=== PATIENT | male | born 1960 | race Caucasian/White ===

== ENCOUNTER 2025-03-08 14:09 | Inpatient (IN) | payer BC, MEDICARE ==
[~2025-03-08] VITALS: Ht 188 cm; Wt 113.9 kg
[~2025-03-08 14:09] MED LIST: AMLO1TAB39 PO; ASPI-845 PO; LEVO25TA2 PO
--- NOTE | 2025-03-08 14:13 | ELECTROCARDIOGRAPH REPORT ---
[facility] Test Date: 2025-03-08 Test Time: 14:11:07 Pat Name: ANTONIA RAMIREZ Department: EMERGENCY ROOM Room: [place] [address] Gender: M Assistant Spa Manager: PM : 1960 Requested By: ANJALI WALTER Order Number: [id number] Reading MD: Dr. Franco Johnson Measurements Intervals [place] Rate: 37 P: 36 AK: 166 QRS: 27 QRSD: 154 T: 10 QT: 522 QTc: 410 Interpretive Statements Predominant 2:1 AV block Right bundle branch block Inferior infarct, old Electronically Signed On 03-10-2025 6:35:[address] Franco Johnson Please click the below link to view image of tracing.
[2025-03-08 14:29] LABS: BASOPHILS % (AUTO) 0.5 % (0-1); EOSINOPHILS # (AUTO) 0.1 X10'3 (0-0.9); EOSINOPHILS % (AUTO) 1.2 % (0-6); HEMATOCRIT 43.3 % (42.0-52.0); HEMOGLOBIN 14.3 g/dl (14.0-17.9); LYMPHOCYTES # (AUTO) 1.6 X10'3 (1.1-4.8); LYMPHOCYTES % (AUTO) 20.6 % (21-51); MEAN CORPUSCULAR HEMOGLOBIN 28.8 PG (27.0-31.0); MEAN CORPUSCULAR HGB CONC 33.1 g/dL (33.0-36.5); MEAN CORPUSCULAR VOLUME 87.1 FL (78-98); MEAN PLATELET VOLUME 8.3 FL (7.4-10.4); MONOCYTES # (AUTO) 0.5 X10'3 (0-0.9); MONOCYTES % (AUTO) 6.7 % (2-12); NEUTROPHILS # (AUTO) 5.7 X10'3 (1.8-7.7); PLATELET COUNT 221 X10'3 (140-440); RED BLOOD COUNT 4.97 X10'6 (4.70-6.10); RED CELL DISTRIBUTION WIDTH 14.6 % (11.5-14.5)
[2025-03-08] MEDS ORDERED: AMLO5TAB16 PO (14:32)
[2025-03-08] MEDS ORDERED: LOSA50TA64 PO (14:32)
--- NOTE | 2025-03-08 14:57 | RADIOLOGY REPORT ---
CHEST RADIOGRAPH Indication: CP Technique: Single frontal view of the chest was obtained Comparison: None FINDINGS: The cardiac silhouette is unremarkable. The lungs demonstrate no pulmonary airspace consolidation. Th e pulmonary vasculature is unremarkable. There is no pleural effusion.. There is no pneumothorax. Ce rvical fusion hardware. Postsurgical changes right axilla. IMPRESSION: 1. No pulmonary airspace consolidation.
[2025-03-08 15:17] LABS: ALBUMIN 3.7 G/DL (3.4-5.0); ANION GAP 7 (8-16); BLOOD UREA NITROGEN 16 MG/DL (7-18); CALCIUM 8.7 MG/DL (8.5-10.1); CHLORIDE 109 MMOL/L (99-107); CREATININE 1.14 MG/DL (0.60-1.10); GLUCOSE 98 MG/DL (70-104); POTASSIUM 3.5 MMOL/L (3.5-5.1); PRO BRAIN NATRIURETIC PEPTIDE 143 PG/ML (0-125); SODIUM 143 MMOL/L (135-145); THYROID STIMULATING HORMONE 1.75 ulU/ml (0.34-4.50); TOTAL CARBON DIOXIDE 26.9 MMOL/L (24-32); eCRCL 78 ML/MIN; eGFR 65 ML/MIN
--- NOTE | 2025-03-08 16:11 | Physician Documentation ---
History of Present Illness ~ Chief Complaint: Bradycardia Stated Complaint: ABNORMAL EKG Time Seen by MD: 14:13 Primary Medical Doctor: TITO HPI Patient was sent to the hospitalist said the request of his primary care provider. He has had generalized weakness work he gets short of breath at times when he normally would not. Denies chest pain he is not lightheaded he has not had a syncopal episode. In the office today he had an EKG which showed a heart block and was sent to the hospital for evaluation. He takes amlodipine. Medication Reconciliation Allergies: Coded Allergies: No Known Allergies (Unverified , 08/09/16) Scheduled Amlodipine Besylate (Amlodipine Besylate), 1 TAB PO DAILY, (Reported) Losartan Potassium (Losartan Potassium), 1 TAB PO DAILY, (Reported) Discontinued Medications Amlodipine Bes/Olmesartan Med (Alverto 5-40 Mg Tablet), 1 TAB PO DAILY, (Reported) Discontinued Reason: completed med therapy Aspirin* (Aspirin EC*), 1 TAB PO BIDBD Discontinued Reason: completed med therapy levothyroxine sodium* (Synthroid*), 50 MCG PO DAILY, (Reported) Discontinued Reason: completed med therapy Physical Exam Vital Signs: Temperature: 98.2, Source: Temporal, Heart Rate: 41, Respiratory Rate: 12, BP: 139/75, Pulse Oximetry: 97, Weight: 113.900 Oxygen Flow Rate: 0 Physical Exam General: Awake and Alert, no acute distress. HEENT: Conjunctiva pink, Sclera clear, Mucus Membranes moist. Neck: Supple without masses and tenderness. Resp: Unlabored. Lungs clear to auscultation bilaterally. Heart: Bradycardic no obvious murmurs Abdomen: Soft and non tender no organomegaly Extremities: No cyanosis,clubbing or edema. Skin: Warm and Dry. Neuro: GCS 15; no focal deficits Progress Results/Orders Results/Orders Orders - ANJALI WALTER MD Chest,Single View (03/08/25 14:12) Monitor (03/08/25 14:12) Saline Lock (03/08/25 14:12) Oxygen (03/08/25 14:12) Hs Troponin I W Calculations (03/08/25 16:12) Hs Troponin I W Calculations (03/08/25 17:12) Completed Orders - ANJALI WALTER MD Chest,Single View (03/08/25 14:12) Cbc/Diff (03/08/25 14:12) BMP (03/08/25 14:12) PBNP (03/08/25 14:12) Electrocardiogram (03/08/25 14:12) Hs Troponin I W Calculations (03/08/25 14:12) TSH (03/08/25 14:18) Vital Signs 03/08/25 03/08/25 03/08/25 03/08/25 14:12 14:24 14:24 14:59 Temp 98.2 98.2 Pulse 37 39 41 Resp 15 14 12 B/P (MAP) 144/65 (91) 139/75 (96) Pulse Ox 97 96 97 O2 Flow Rate 0 0 Laboratory Tests Test 03/08/25 14:18 White Blood Count 8.0 Red Blood Count 4.97 Hemoglobin 14.3 Hematocrit 43.3 Mean Corpuscular Volume 87.1 Mean Corpuscular Hemoglobin 28.8 Mean Corpuscular Hemoglobin Concent 33.1 Red Cell Distribution Width 14.6 H Platelet Count 221 Mean Platelet Volume 8.3 Neutrophils (%) (Auto) 71.0 Lymphocytes (%) (Auto) 20.6 L Monocytes (%) (Auto) 6.7 Eosinophils (%) (Auto) 1.2 Basophils (%) (Auto) 0.5 Neutrophils # (Auto) 5.7 Lymphocytes # (Auto) 1.6 Monocytes # (Auto) 0.5 Eosinophils # (Auto) 0.1 Basophils # (Auto) 0.0 CBC Comment Sodium Level 143 Potassium Level 3.5 Chloride Level 109 H Carbon Dioxide Level 26.9 Anion Gap 7 L Blood Urea Nitrogen 16 Creatinine 1.14 H Estimated GFR/1.73 m2 65 BUN/Creatinine Ratio 14.0 Glucose Level 98 Calcium Level 8.7 Troponin I High Sensitivity 14 Pro-B-Type Natriuretic Peptide 143 H Albumin 3.7 Thyroid Stimulating Hormone (TSH) 1.75 Chemistry Comments Medical Decision Making Findings EKGs interpreted by me shows a heart block were every other P wave is nonconducted rate is 37 beats per minute axis is normal incomplete right bundle branch block no ST elevation or depression Patient was sent to the hospital by his primary care provider after they did an EKG which showed a heart block. He does take amlodipine. His was placed on a monitor and EKG was done. He appears to be in a Mobitz type 2 second-degree heart block. He is hemodynamically stable normal blood pressure and he is asymptomatic. Dr. Vivas was consulted who is going to come see the patient. Departure Disposition: 09 ADMITTED INPATIENT Impression: Primary Impression: Mobitz type 2 second degree atrioventricular block Condition: Guarded Referrals: NO PRIMARY CARE PROVIDER (PCP) Education Educated: Patient, Family Educated regarding: diagnosis, treatment, prognosis Critical Care Note Critical Care Note This patient had a high probability of sudden, clinically significant deterioration, which required the highest level of physician preparedness to intervene urgently. The patient required and I delivered critical care from time of arrival until disposition. Critical care time was separate from procedural such as intubation or central line placement or cardioversion. Critical care included initial assessment of the seriously ill patient, initiation of diagnostic studies and treatment, management of life-threatening and/or end organ supporting interventions that required frequent physician assessment, and phone consultation with other providers as outlined in the progress notes. Spent with family or surrogates is included only if the patient was not capable of providing the necessary information or participating in medical decision-making. Total critical care time: 60 minutes Signature Scribe Signature: no scribe Attestation: no ANJALI Gamboa MD Mar 08, 2025 16:11
[2025-03-08] MEDS ORDERED: ondansetron/PF 4mg/2ml inj IV PRN (16:30)
[2025-03-08] MEDS ORDERED: magnesium sulf-water 4G/100mL 100 ML IV PRN (16:30)
[2025-03-08] MEDS ORDERED: potassium Cl 20 mEq SR tablet PO PRN ×2 (16:30)
[2025-03-08] MEDS ORDERED: potassium Cl 40MEQ/1/2NS 520ml 520 ML IV PRN (16:30)
[2025-03-08] MEDS ORDERED: magnesium sulf-water 2g/50mL 50 ML IV PRN (16:30)
[2025-03-08] MEDS ORDERED: acetaminophen 325mg tablet PO PRN ×2 (16:30)
[2025-03-08] MEDS ORDERED: mag hydrox/Alum hydrox/simeth 30ml oral suspension PO PRN (16:30)
[2025-03-08] MEDS ORDERED: HYDROcodone/acetaminophen 5mg/325mg tablet PO PRN (16:30)
[2025-03-08] MEDS ORDERED: magnesium Cl slow-release 64mg tablet PO PRN (16:30)
[2025-03-08 16:54] LABS: INR 1.1 INR; PROTHROMBIN TIME 10.8 SECONDS (9.0-12.0)
[2025-03-08 17:07] LABS: HEMOGLOBIN A1C 5.3 % (4.5-6.2)
--- NOTE | 2025-03-08 17:35 | HISTORY AND PHYSICAL-Residence ---
History & Physical Providers to CC Resident Creating Document: ESTHER NELSON RES ~ History of Present Illness Primary Medical Doctor: TITO Reason for Admit\Complaint: heart block, bradycardia History of Present Illness 64-year-old male with history of hypertension, right bundle-branch block diagnosed a year ago presented to the ED from [facility] after he was found to be bradycardic and was noted to have a heart block on EKG. On exam his pulse was in the low 40s, EKG showed second-degree heart block and hence recommended that he goes to the ER. He states he has been feeling lethargic and tired for the past two three months. Denies chest pain, dizziness, headaches, shortness of breath, nausea vomiting fever or chills. No aggravating or relieving factors. No other associated symptoms. He follows up with his synchronizer Dr. Jenkins, last seen him in February 2024. Denies smoking or drug abuse. Drinks occasional alcohol. 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 Independent ADLs. Discussed advanced care directives and wishes to be a full code. Allergies: Coded Allergies: No Known Allergies (Unverified , 08/09/16) Home Medications Home Medications Active Reported Losartan Potassium 50 Mg Tablet 1 Tab PO DAILY Amlodipine Besylate 5 Mg Tablet 1 Tab PO DAILY Past Medical History Past Medical History Hypertension Right bundle-branch block Past Surgical History Surgical History Comment Orthopedic surgeries bilateral hip, knee replacement Cervical fusion Resection of melanoma of the shoulder ROS ROS Reviewed in full. All negative except for pertinent positive HPI. Exam Vitals: Vital Signs Date Time Temp Pulse Resp B/P (MAP) Pulse Ox O2 Delivery O2 Flow Rate FiO2 03/08/25 16:25 98.2 36 15 179/100 (126) 97 0 General: General: Awake and Alert, concerned but not in any acute distress. HEENT: Conjunctiva pink, Sclera clear, Mucus Membranes moist. Neck: Supple without masses and tenderness. Resp: Unlabored. Equal breath sounds bilaterally. Heart: Bradycardic, sinus rhythm, normal S1 and S2, no rub, murmur or gallop. Abdomen: Soft and non tender no organomegaly. Normal bowel sounds x4 quadrant normoactive. No guarding or rigidity. Extremities: Normal ROM, no swelling, nontender. No cyanosis,clubbing or edema. SALT LIFTER: No gross motor or sensory abnormalities. Skin: Warm and Dry. Diagnostic Data Last Recorded Lab Results: 03/08/25 1418 03/08/25 1418 Diagnostic Data: Laboratory Tests Test 03/08/25 14:18 Prothrombin Time 10.8 SECONDS (9.0-12.0) INR International Normalized Ratio 1.1 INR Coagulation Comments Advance Care Planning Advanced Care plannin - 30 Minutes Additional Plan 64-year-old male with history of hypertension, right bundle-branch block diagnosed a year ago presented to the ED from [facility] after he was found to be bradycardic and was noted to have a heart block on EKG. Mobitz type 2 Second-degree heart block Symptomatic bradycardia secondary to above Vitals blood pressure 179/100, heart rate 34 EKG: Second-degree Mobitz type 2 heart block, right bundle-branch block He is hemodynamically stable at this time, he has a pacer pads on him Troponins negative, electrolytes and TSH within normal limits Not on any medication that could be precipitating the above event Continue telemetry monitoring, patient currently hemodynamically stable, will need permanent pacemaker, if he gets unstable he might require atropine and temporary transvenous pacing Dr. Vivas has been consulted by ED, appreciate recommendations JOSETTE likely secondary to vasomotor nephropathy Hypertension Awaiting med rec Code Status: Full code DVT prophylaxis: Heparin Analgesia/sedation: None Line/tube: PIV GI prophylaxis: None Nutrition: NPO in view of possible pacemaker placement today Prognosis: Guarded Disposition: Continue medical management. Esther Nelson MD. IM Resident PGY-2 Date of Service: Mar 08, 2025 Billing Provider: ELIAS GIBBS MD Common Visit Codes: [id number] INP/OBS CARE (HIGH) Secondary Visit Codes: [id number] CARE PLAN 30 MINUTES ESTHER NELSON, LINWOOD Mar 08, 2025 17:35 ELIAS GIBBS MD Mar 09, 2025 22:07
[2025-03-08 17:38] LABS: BILIRUBIN,URINE NEGATIVE (Neg); CLARITY,URINE CLEAR (Clear); COLOR,URINE YELLOW (Yellow); GLUCOSE, URINE NEGATIVE (Neg); KETONES,URINE NEGATIVE (Neg); LEUKOCYTE ESTERASE ,URINE NEGATIVE (Neg); NITRITES, URINE NEGATIVE (Neg); OCCULT BLOOD,URINE NEGATIVE (Neg); PROTEIN,URINE NEGATIVE (Neg); UROBILINOGEN,URINE 0.2 E.U/dL (0.2-1.0)
[2025-03-08 17:47] LABS: UA COLLECTION TYPE VOIDED
[2025-03-08] MEDS: normal saline 1000ml 1,000 ML IV SCH (19:02)
[2025-03-08] MEDS: K and/or MAG REPLACEMENT MC SCH (19:03)
[2025-03-08 20:30] VITALS: BP 206/86; PULSE 32; RESP 15; TEMP 98.5; O2SAT 97
[2025-03-08] MEDS: heparin, porcine 5000 units/ml vial SQ SCH (20:42)
[2025-03-08 21:00] VITALS: RESP 14; O2SAT 97
[2025-03-08 22:00] VITALS: BP 172/73; PULSE 33; RESP 13; TEMP 98.3; O2SAT 97
[2025-03-09] VITALS (16 sets, daily range): BP systolic 129–204; BP diastolic 74–92; PULSE 34–73; RESP 12–19; TEMP 97.3–98.6; O2SAT 94–98
[2025-03-09 06:11] LABS: BASOPHILS % (AUTO) 0.5 % (0-1); EOSINOPHILS # (AUTO) 0.1 X10'3 (0-0.9); EOSINOPHILS % (AUTO) 2.5 % (0-6); HEMATOCRIT 40.7 % (42.0-52.0); HEMOGLOBIN 13.5 g/dl (14.0-17.9); LYMPHOCYTES # (AUTO) 1.6 X10'3 (1.1-4.8); LYMPHOCYTES % (AUTO) 30.7 % (21-51); MEAN CORPUSCULAR HEMOGLOBIN 28.8 PG (27.0-31.0); MEAN CORPUSCULAR HGB CONC 33.1 g/dL (33.0-36.5); MEAN CORPUSCULAR VOLUME 86.9 FL (78-98); MEAN PLATELET VOLUME 7.8 FL (7.4-10.4); MONOCYTES # (AUTO) 0.4 X10'3 (0-0.9); MONOCYTES % (AUTO) 8.1 % (2-12); NEUTROPHILS # (AUTO) 3.1 X10'3 (1.8-7.7); NEUTROPHILS % (AUTO) 58.2 % (42-75); PLATELET COUNT 171 X10'3 (140-440); RED BLOOD COUNT 4.68 X10'6 (4.70-6.10); RED CELL DISTRIBUTION WIDTH 14.1 % (11.5-14.5); WHITE BLOOD COUNT 5.3 X10'3 (4.5-11.0)
[2025-03-09 06:23] LABS: ALANINE AMINOTRANSFERASE 35 U/L (12-78); ALBUMIN/GLOBULIN RATIO 1.1 (1.1-1.5); ALKALINE PHOSPHATASE 59 IU/L (46-116); ANION GAP 9 (8-16); ASPARTATE AMINO TRANSFERASE 20 U/L (10-37); BILIRUBIN,TOTAL 0.9 MG/DL (0.1-1.0); BLOOD UREA NITROGEN 10 MG/DL (7-18); BUN/CREATININE RATIO 11.8 (10.0-20.0); CALCIUM 8.4 MG/DL (8.5-10.1); CHLORIDE 109 MMOL/L (99-107); CREATININE 0.85 MG/DL (0.60-1.10); GLUCOSE 88 MG/DL (70-104); PHOSPHORUS 3.4 MG/DL (2.3-4.5); POTASSIUM 3.7 MMOL/L (3.5-5.1); SODIUM 147 MMOL/L (135-145); TOTAL CARBON DIOXIDE 28.9 MMOL/L (24-32); TOTAL PROTEIN 5.7 G/DL (6.4-8.2); eCRCL 105 ML/MIN; eGFR > 90 ML/MIN
[2025-03-09] MEDS: hydrALAZINE 20mg/ml inj. IV PRN (07:50)
[2025-03-09] MEDS ORDERED: ceFAZolin 1000mg inj ONE (15:26)
[2025-03-09] MEDS ORDERED: LIDOcaine 1% W/epiNEPHrine 1:100,000 20ml vial ONE (15:26)
[2025-03-09] MEDS ORDERED: fentaNYL/PF 50MCG/1 ML 2ML syringe ONE (15:26)
[2025-03-09] MEDS ORDERED: midazolam 1 mg/ML 2ml injection ONE ×2 (15:26→17:47)
--- NOTE | 2025-03-09 15:58 | CONSULTATION REPORT ---
History of Present Illness Providers to CC CC: MARQUIS VIVAS MD ~ Reason for Admit\Admit Dx: Cardiology Consultation Refering MD: Hospitalist/Residency Service History of Present Illness 64 year-old male with PMH HTN and RBBB presented to the ED from [facility] after he was found to be bradycardic and was noted to have a heart block on EKG. On exam his pulse was in the low 40s, EKG showed second-degree type 2 heart block with 2:1 conduction. It was recommended that he goes to the ER. He states he has been feeling lethargic, fatigued and tired for the past two to three months. Denies chest pain, dizziness, headaches, shortness of breath, nausea vomiting fever or chills. No aggravating or relieving factors. No other associated symptoms. His [place] Layer is Dr. Jenkins who has signed out to the on-call [place] Layer Dr. Emely Vivas. Allergies: Coded Allergies: No Known Allergies (Unverified , 08/09/16) Home Medications Home Medications Active Reported Losartan Potassium 50 Mg Tablet 1 Tab PO DAILY Amlodipine Besylate 5 Mg Tablet 1 Tab PO DAILY (Discontinued). Past Medical History Medical History Comment Hypertension Right bundle branch block Past Surgical History Surgical History Comment No prior cardiovascular procedures. Past Family History Family History Comment Non-contributory Past Social History Social History Comment Denies illicit drug use. Non-smoker. Physical Exam Last Vital Signs Recorded: Temperature: 97.3, Source: Temporal, Heart Rate: 37, Respiratory Rate: 13, BP: 204/82, Pulse Oximetry: 98, Weight: 113.900 General Appearance: alert, no apparent distress EENT: PERRL/EOMI, normal ENT inspection Neck: normal inspection Respiratory: lungs clear, no respiratory distress Chest: no accessory muscle use Cardiovascular: normal peripheral pulses, bradycardia Peripheral Pulses: 2+ radial (R), 2+ radial (L) Gastrointestinal: normal palpation, non-tender Extremities: normal range of motion Neurologic: oriented x4, memory intact Psychiatric: normal mood/affect Skin: normal color Review of Systems All Other Systems at this time: Reviewed and Negative ROS 10 point ROS completed, all negative except those mentioned in HPI Results EKG EKG Second degree type 2 heart block with 2:1 conduction. Ventricular rate 37 Echocardiogram Echocardiogram Report pending. Initial interpretation: No valvular disease. LVEF 60-65% Diagram Lab Result Diagram: 03/09/25 0548 03/09/2548 Assessment/Plan Additional Plan 64-year-old male with history of HTN, RBBB. Recently experiencing increased fatigue, lethargy. Presents to ER from [facility] with 2nd degree Mobitz 2 AV block with 2:1 conduction. Pt. reports his HR monitoring watch has been warning him for several weeks of low HR. Second Degree Heart Block Type 2. Ventricular rate 37bpm. Pt. with symptoms increasing in severity. -Pt. will require permanent pacemaker implantation. -The nature of the procedure, including risks, benefits, and alternatives were discussed with patient and . All questions addressed and answered. The patient wishes to proceed. Supervising MD Supervising Physician: FABRICE Lou [facility] Mar 09, 2025 15:58
[2025-03-09] MEDS ORDERED: iohexol 350 MG/ML 50ML vial IV ONE (17:41)
--- NOTE | 2025-03-09 18:05 | CARDIOLOGY REPORT ---
APPROVED REPORT EXAM: Limited 2D, Doppler, and color-flow Echocardiogram. Patient Location: ER3 Blood Pressure: 192/ 87 mmHg Heart Rate: 31 bpm Rhythm: MOBITZ II HEART BLOCK Indications ARRHYTHMIA Firmware Manager: MD CAROLYN / CONSULT: Emely Vivas MD Previous echo: NONE AVAILABLE - AFTER HRS 2D Dimensions RVDd 3.5 cm LA Diam4.0 cm Tricuspid Valve TR P. Velocity 326 cm/s RAP ESTIMATE 10 mmHg TR Peak Gr. 43 mmHg RVSP 53 mmHg LEFT VENTRICLE Normal LV size and wall thickness. Overall systolic function appears reduced. LVEF is 50-55%. LV func tion assessed in Mobitz II heart block. Recommend reassessment with normalized rhythm for accurate ev aluation. RIGHT VENTRICLE RV is normal size and function. Elevated right heart pressures as noted above. ATRIA Left atrium is mildly dilated. AORTIC VALVE Trileaflet AV appears mildly sclerotic without stenosis or insufficiency. MITRAL VALVE Mild MV annular calcification without stenosis. Mild regurgitation. TRICUSPID VALVE TV appears structurally normal with mild regurgitation. PULMONIC VALVE Pulmonic valve is not visualized or evlauated. GREAT VESSELS Aortic root is normal in size. Normal appearing arch with normal flow velocities. Ascending aorta is normal in size. PERICARDIUM Normal pericardium. No effusion. Other Information Study Quality: Technically Difficult due to low HR, low parasternal window. Conclusion Normal LV size and wall thickness. Overall systolic function appears reduced. LVEF is 50-55%. LV func tion assessed in Mobitz II heart block. Recommend reassessment with normalized rhythm for accurate e valuation. RV is normal size and function. Elevated right heart pressures with an RVSP of 53 mmHg. Left atrium is mildly dilated. Trileaflet AV appears mildly sclerotic without stenosis or insufficiency. Mild MV annular calcification without stenosis. Mild regurgitation. TV appears structurally normal with mild regurgitation. Normal pericardium. No effusion.
--- NOTE | 2025-03-09 18:26 | PROGRESS NOTE- Residence ---
Progress Note - Resident Providers to CC Resident Creating Document: ESTHER NELSON RES ~ Antibiotic Timeout Antibiotic Ordered?: No Subjective Patient seen and examined at bedside. Awaiting to be seen by Dr. Vivas, likely to have the pacemaker later this evening. Denies any complaints at this time. Objective Vital Signs Date Time Temp Pulse Resp B/P (MAP) Pulse Ox O2 Delivery O2 Flow Rate FiO2 03/09/25 15:00 97.8 34 16 183/75 (111) 95 Room Air 03/08/25 18:06 0 Result Diagram: 03/09/25 0548 03/09/25 0548 General: Awake and Alert, concerned but not in any acute distress. HEENT: Conjunctiva pink, Sclera clear, Mucus Membranes moist. Neck: Supple without masses and tenderness. Resp: Unlabored. Equal breath sounds bilaterally. Heart: Bradycardic, sinus rhythm, normal S1 and S2, no rub, murmur or gallop. Abdomen: Soft and non tender no organomegaly. Normal bowel sounds x4 quadrant normoactive. No guarding or rigidity. Extremities: Trace lower extremity edema ELEVATOR TENDER: No gross motor or sensory abnormalities. Skin: Warm and Dry. Coagulation Studies Laboratory Tests Test 03/08/25 14:18 Prothrombin Time 10.8 SECONDS (9.0-12.0) INR International Normalized Ratio 1.1 INR Coagulation Comments Assessment Assessment 64-year-old male with history of hypertension, right bundle-branch block diagnosed a year ago presented to the ED from [facility] after he was found to be bradycardic and was noted to have a heart block on EKG. Plan Plan Mobitz type 2 Second-degree heart block Symptomatic bradycardia secondary to above Vitals blood pressure 179/100, heart rate 34 EKG: Second-degree Mobitz type 2 heart block, right bundle-branch block He is hemodynamically stable at this time, he has a pacer pads on him Troponins negative, electrolytes and TSH within normal limits Not on any medication that could be precipitating the above event Continue telemetry monitoring, patient currently hemodynamically stable, will need permanent pacemaker, if he gets unstable he might require atropine and temporary transvenous pacing Dr. Vivas has been consulted by ED, appreciate recommendations 03/09/2025: Heart rate 34, denies any concerns or complaints at this time Likely to get the pacemaker done later this evening by Dr. Vivas, we will follow up postprocedure JOSETTE likely secondary to vasomotor nephropathy-resolved Hypertension DC fluids Resume home blood pressure medications from tomorrow Code Status: Full code DVT prophylaxis: Heparin Analgesia/sedation: None Line/tube: PIV GI prophylaxis: None Nutrition: Heart healthy diet postprocedure Prognosis: Guarded Disposition: Continue medical management. Esther Nelson MD. IM Resident PGY-2 Date of Service: Mar 09, 2025 Billing Provider: ELIAS GIBBS MD Common Visit Codes: [id number] INP/OBS CARE(HIGH) ESTHER NELSON, RES Mar 09, 2025 18:26 ELIAS GIBBS MD Mar 09, 2025 22:08
[2025-03-09] MEDS ORDERED: HYDROcodone/acetaminophen 5mg/325mg tablet PO PRN (19:05)
[2025-03-09] MEDS ORDERED: LORazepam 1 MG tablet PO PRN (19:05)
[2025-03-09] MEDS: hydrALAZINE 20mg/ml inj. IV ONE (20:15)
[2025-03-09] MEDS: HYDROcodone/acetaminophen 10/325mg tab PO PRN (23:31)
[2025-03-09] MEDS: ceFAZolin/D5W- 1GM premix 50 ML IV SCH (23:46)
[2025-03-10 00:26] VITALS: BP 150/82; PULSE 70; TEMP 98.3; O2SAT 95
[2025-03-10 02:00] VITALS: BP 151/80; PULSE 60; RESP 20; TEMP 97.1; O2SAT 97
[2025-03-10 05:55] LABS: BASOPHILS % (AUTO) 0.3 % (0-1); EOSINOPHILS # (AUTO) 0.1 X10'3 (0-0.9); EOSINOPHILS % (AUTO) 2.2 % (0-6); HEMATOCRIT 40.9 % (42.0-52.0); HEMOGLOBIN 13.6 g/dl (14.0-17.9); LYMPHOCYTES # (AUTO) 1.5 X10'3 (1.1-4.8); LYMPHOCYTES % (AUTO) 23.4 % (21-51); MEAN CORPUSCULAR HEMOGLOBIN 29.1 PG (27.0-31.0); MEAN CORPUSCULAR HGB CONC 33.2 g/dL (33.0-36.5); MEAN CORPUSCULAR VOLUME 87.5 FL (78-98); MEAN PLATELET VOLUME 7.8 FL (7.4-10.4); MONOCYTES # (AUTO) 0.5 X10'3 (0-0.9); MONOCYTES % (AUTO) 7.6 % (2-12); NEUTROPHILS # (AUTO) 4.3 X10'3 (1.8-7.7); NEUTROPHILS % (AUTO) 66.5 % (42-75); PLATELET COUNT 184 X10'3 (140-440); RED BLOOD COUNT 4.67 X10'6 (4.70-6.10); RED CELL DISTRIBUTION WIDTH 14.1 % (11.5-14.5); WHITE BLOOD COUNT 6.5 X10'3 (4.5-11.0)
[2025-03-10 06:00] VITALS: BP 184/96; PULSE 61; RESP 18; TEMP 97.3; O2SAT 98
[2025-03-10 06:09] LABS: ALANINE AMINOTRANSFERASE 30 U/L (12-78); ALBUMIN/GLOBULIN RATIO 1.1 (1.1-1.5); ALKALINE PHOSPHATASE 59 IU/L (46-116); ANION GAP 9 (8-16); ASPARTATE AMINO TRANSFERASE 17 U/L (10-37); BILIRUBIN,TOTAL 0.7 MG/DL (0.1-1.0); BLOOD UREA NITROGEN 10 MG/DL (7-18); BUN/CREATININE RATIO 12.3 (10.0-20.0); CHLORIDE 108 MMOL/L (99-107); CREATININE 0.81 MG/DL (0.60-1.10); GLUCOSE 85 MG/DL (70-104); PHOSPHORUS 3.9 MG/DL (2.3-4.5); POTASSIUM 3.9 MMOL/L (3.5-5.1); SODIUM 144 MMOL/L (135-145); TOTAL CARBON DIOXIDE 26.9 MMOL/L (24-32); TOTAL PROTEIN 5.8 G/DL (6.4-8.2); eCRCL 110 ML/MIN; eGFR > 90 ML/MIN
--- NOTE | 2025-03-10 06:50 | RADIOLOGY REPORT ---
EXAM: XR Chest, 1 View CLINICAL INDICATION: ICD placement TECHNIQUE: Frontal view of the chest. COMPARISON: DI CHEST,SINGLE VIEW on DOS: 03/08/25 FINDINGS: LUNGS AND PLEURAL SPACES: Unremarkable. No pneumothorax. HEART: Unremarkable. No cardiomegaly. MEDIASTINUM: Unremarkable. Normal mediastinal contour. BONES/JOINTS: Unremarkable. No acute fracture. TUBES, LINES AND DEVICES: Left-sided cardiac pacemaker. OTHER FINDINGS: . IMPRESSION: No pneumothorax.
[2025-03-10 06:58] VITALS: BP_SYST 184; PULSE 61
[2025-03-10] MEDS: hydrALAZINE 20mg/ml inj. IV ONE (06:58)
[2025-03-10] MEDS ORDERED: amLODIPine 5mg tablet PO SCH ×2 (08:00→12:00)
[2025-03-10] MEDS ORDERED: losartan 50mg tablet PO SCH ×2 (08:00→10:00)
[2025-03-10 08:15] VITALS: RESP 16; O2SAT 96
--- NOTE | 2025-03-10 19:22 | DISCHARGE SUMMARY-Residence ---
Discharge Summary Providers to CC Resident Creating Document: THONY NELSONLINWOOD VAZQUEZ ~ Discharge Summary Admission Diagnosis: SYMPTOMATIC BRADYCARDIA, HEART BLOCK Hospital Course DATE OF ADMISSION: 03/08/2025 DATE OF DISCHARGE: 03/10/2025 Hospital course same as mentioned discharge summary. Discharge Diagnosis\Comment: Mobitz type 2 second-degree heart block Bradycardia secondary to above JOSETTE secondary to vasomotor nephropathy-resolved Hypertension Operations\Procedures: Pacemaker Consultants: Dr. Shayla Vivas Complications: None Condition on DC: Stable Continued Medications: Amlodipine Besylate (Amlodipine Besylate) 5 Mg Tablet 1 TAB PO DAILY Losartan Potassium (Losartan Potassium) 50 Mg Tablet 1 TAB PO DAILY Discharge Summary: As per HPI: 64-year-old male with history of hypertension, right bundle-branch block diagnosed a year ago presented to the ED from [facility] after he was found to be bradycardic and was noted to have a heart block on EKG. On exam his pulse was in the low 40s, EKG showed second-degree heart block and hence recommended that he goes to the ER. He states he has been feeling lethargic and tired for the past two three months. Denies chest pain, dizziness, headaches, shortness of breath, nausea vomiting fever or chills. No aggravating or relieving factors. No other associated symptoms. He follows up with his transplant surgeon Dr. Jenkins, last seen him in February 2024. Denies smoking or drug abuse. Drinks occasional alcohol. 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 Independent ADLs. Discussed advanced care directives and wishes to be a full code. Hospital course: On further evaluation he was hemodynamically stable , he had a blood pressure 179/100 and heart rate in the 34. EKG showed second-degree Mobitz type 2 heart block with a right bundle-branch block. Troponins were negative, electrolytes and TSH within normal limits. He was not on any medication that could be precipitating the above event. He was placed on telemetry monitoring. Cardiology was consulted. Dr. Lee gone place the pacemaker on 03/09/2025. Post pacemaker placement his heart rate has been in the high 60s and 70. He also had JOSETTE and was given fluids adequately, resolved. He did not have any symptoms, he is doing well he improved clinically. His hospital course is uncomplicated he is hemodynamically stable on the day of d ischarge and her physical exam is as follows: General: Awake and Alert, concerned but not in any acute distress. HEENT: Conjunctiva pink, Sclera clear, Mucus Membranes moist. Neck: Supple without masses and tenderness. Resp: Unlabored. Equal breath sounds bilaterally. Heart: Left arm sling in place, sinus rhythm, normal S1 and S2, no rub, murmur or gallop. Abdomen: Soft and non tender no organomegaly. Normal bowel sounds x4 quadrant normoactive. No guarding or rigidity. 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 Skin: Warm and Dry. Discharge medications can be found above. Patient is being discharged with the following advice: Follow up with Cardiology outpatient within two weeks, avoid strenuous activity of the left hand. If condition worsens call 911 or go to the nearest ER immediately. Laboratory Tests Test 03/09/25 05:48 03/10/25 05:21 White Blood Count 5.3 X10'3 6.5 X10'3 Red Blood Count 4.68 X10'6 4.67 X10'6 Hemoglobin 13.5 g/dl 13.6 g/dl Hematocrit 40.7 % 40.9 % Mean Corpuscular Volume 86.9 FL 87.5 FL Mean Corpuscular Hemoglobin 28.8 PG 29.1 PG Mean Corpuscular Hemoglobin Concent 33.1 g/dL 33.2 g/dL Red Cell Distribution Width 14.1 % 14.1 % Platelet Count 171 X10'3 184 X10'3 Mean Platelet Volume 7.8 FL 7.8 FL Neutrophils (%) (Auto) 58.2 % 66.5 % Lymphocytes (%) (Auto) 30.7 % 23.4 % Monocytes (%) (Auto) 8.1 % 7.6 % Eosinophils (%) (Auto) 2.5 % 2.2 % Basophils (%) (Auto) 0.5 % 0.3 % Neutrophils # (Auto) 3.1 X10'3 4.3 X10'3 Lymphocytes # (Auto) 1.6 X10'3 1.5 X10'3 Monocytes # (Auto) 0.4 X10'3 0.5 X10'3 Eosinophils # (Auto) 0.1 X10'3 0.1 X10'3 Basophils # (Auto) 0.0 X10'3 0.0 X10'3 CBC Comment Sodium Level 147 MMOL/L 144 MMOL/L Potassium Level 3.7 MMOL/L 3.9 MMOL/L Chloride Level 109 MMOL/L 108 MMOL/L Carbon Dioxide Level 28.9 MMOL/L 26.9 MMOL/L Anion Gap 9 9 Blood Urea Nitrogen 10 MG/DL 10 MG/DL Creatinine 0.85 MG/DL 0.81 MG/DL Estimated GFR/1.73 m2 > 90 ML/MIN > 90 ML/MIN BUN/Creatinine Ratio 11.8 12.3 Glucose Level 88 MG/DL 85 MG/DL Calcium Level 8.4 MG/DL 9.0 MG/DL Phosphorus Level 3.4 MG/DL 3.9 MG/DL Magnesium Level 2.0 MG/DL 2.0 MG/DL Total Bilirubin 0.9 MG/DL 0.7 MG/DL Aspartate Amino Transf (AST/SGOT) 20 U/L 17 U/L Alanine Aminotransferase (ALT/SGPT) 35 U/L 30 U/L Alkaline Phosphatase 59 IU/L 59 IU/L Total Protein 5.7 G/DL 5.8 G/DL Albumin 3.0 G/DL 3.0 G/DL Globulin 2.7 G/DL 2.8 G/DL Albumin/Globulin Ratio 1.1 1.1 Chemistry Comments *Problems/Diagnosis: (1) Mobitz type 2 second degree atrioventricular block Status: Acute Total Time Spent on D/C: > 30 Minutes Date of Service: Mar 10, 2025 Billing Provider: ELIAS GIBBS MD Common Visit Codes: 02023-UYB/OBS DISCH DAY >30min DELANO NELSON, RES Mar 10, 2025 19:22 ELIAS GIBBS MD Mar 10, 2025 22:23
--- NOTE | 2025-03-21 07:28 | CARDIOLOGY REPORT ---
DATE OF SERVICE: 03/09/2025 DICTATING PHYSICIAN: Rey Vivas MD PACEMAKER PROCEDURE DATE OF STUDY: 03/09/2025 NAME OF PROCEDURE: Implantation of a dual-chamber permanent pacemaker. INDICATIONS: * Sick sinus syndrome. * Symptomatic bradycardia. * Second-degree Mobitz type II heart block. PHYSICIAN: Rey Vivas MD DESCRIPTION OF PROCEDURE: After informed consent was obtained, the patient was brought to the lab where he was prepped in the usual sterile fashion. The patient was given fentanyl and Versed for sedation. After using 40 mL of lidocaine to the subclavicular region, access to the left subclavian vein was obtained. Next, a 3-5 cm incision approximately 1 cm below the clavicle was made. Using blunt dissection, the pocket was created. A second access via the pocket to the left subclavian vein was obtained. Thereafter, using a 6-Spanish sheath, the sheath was advanced under fluoroscopy guidance over the wire into the subclavian vein. The right ventricular lead was then advanced into the right ventricular apex where required thresholds were obtained. The lead was then secured with 3-0 silk. Next, a second sheath was inserted over the J-wire. The right atrial lead was then advanced into the right atrial appendage, which was secured with 3-0 silk. Both leads were then connected to the generator. The pocket was copiously irrigated. Leads were implanted into the pocket, which was then closed with 4-0 Vicryl and 4-0 Monocryl. Steri-Strips and a sterile dressing were applied. IMPRESSION: Successful implantation of a dual-chamber [employer] Va[place] S DR MRI pacemaker without complication. Rey Vivas MD TID: [id number] RECEIPT: [id number] JH/JORGE L
== END 2025-03-10 09:30 | disposition home or self-care (01) | DRG 242 ==
LOC: ER 14:10 → ED HOLD 16:35 → EDBEDREQ 19:50 → PCU 3S 20:15
PROVIDERS: ADMIT Internal Medicine; ATTEND Internal Medicine
PROC: 0JH606Z Insertion of Pacemaker, Dual Chamber into Chest Subcutaneous Tissue and Fascia, Open Approach (ICD-10-PCS; principal; 2025-03-09)
PROC: 02H63JZ Insertion of Pacemaker Lead into Right Atrium, Percutaneous Approach (ICD-10-PCS; 2025-03-09)
PROC: 02HK3JZ Insertion of Pacemaker Lead into Right Ventricle, Percutaneous Approach (ICD-10-PCS; 2025-03-09)
DX: I49.5 Sick sinus syndrome (principal); N17.0 Acute kidney failure with tubular necrosis; I44.1 Atrioventricular block, second degree; I10 Essential (primary) hypertension; Z79.899 Other long term (current) drug therapy
CPT/HCPCS: 33208; 36415; 71045; 80048; 80053; 81003; 83036; 83735; 83880; 84100; 84443; 84484; 85025; 85610; 93005; 93308; 96360; 96372; 99152; 99153; 99291; A6258; C1785; C1898; G0378; J0360; J0690; J1644; J2250; J3010; J3490; J7030; J7040; Q9967